=== PATIENT | female | born 1995 | race African-American/Black ===

== ENCOUNTER 2021-06-02 07:44 | Inpatient (IN) | payer OTHER ==
[~2021-06-02] VITALS: Ht 160 cm; Wt 52.6 kg
[2021-06-02] MEDS ORDERED: RHO(D) IMMUNE GLOBULIN 300 MCG/SYR IM SCH (08:15)
[2021-06-02] MEDS ORDERED: IBUPROFEN 400MG TABLET PO PRN (08:30)
[2021-06-02] MEDS ORDERED: RHO(D) IMMUNE GLOBULIN 300 MCG/SYR IM PRN (08:30)
[2021-06-02] MEDS ORDERED: LANOLIN OINT 7GM TUBE TOP PRN (08:30)
[2021-06-02] MEDS ORDERED: METHYLERGONOVINE MALEATE 0.2 MG/ML IM PRN (08:30)
[2021-06-02] MEDS ORDERED: IBUPROFEN 800MG TABLET PO PRN (08:30)
[2021-06-02 09:30] VITALS: BP 132/73
[2021-06-02 10:16] LABS: CLARITY URINE TURBID (CLEAR); COLOR URINE RED (YELLOW); KETONES URINE NEGATIVE (NEGATIVE); LEUKOCYTE ESTERASE URINE 2+ (NEGATIVE); NITRITE URINE POSITIVE (NEGATIVE); OCCULT BLOOD URINE 3+ (NEGATIVE); PH URINE >=9.0 (4.5-8.0); PROTEIN URINE 2+ (NEGATIVE); SPECIFIC GRAVITY URINE 1.017 (1.005-1.030); UROBILINOGEN URINE 0.2 E.U./dL (0.2-1.0)
[2021-06-02 10:52] LABS: HEMOGLOBIN. 11.5 g/dL (12.0-16.0); MEAN CORPUSCULAR HEMOGLOBIN 23.2 pg (28.0-32.0); MEAN CORPUSCULAR VOLUME 76.5 fL (81.0-99.0); MEAN PLATELET VOLUME 7.3 fl (7.4-10.4); PLATELET 453 x1000/uL (130-400); RED BLOOD CELL COUNT 4.97 mill/uL (4.2-5.4); RED CELL DISTRIBUTION WIDTH 33.5 % (11.6-14.6)
[2021-06-02 10:55] LABS: *AMPHETAMINES SCREEN URINE NEGATIVE (NEGATIVE); *BARBITURATES SCREEN URINE NEGATIVE (NEGATIVE); *BENZODIAZEPINES SCREEN URINE NEGATIVE (NEGATIVE); *COCAINE SCREEN URINE NEGATIVE (NEGATIVE); METHADONE URINE SCREEN NEGATIVE (NEGATIVE); OPIATES URINE SCREEN NEGATIVE (NEGATIVE); PHENCYCLIDINE URINE SCREEN NEGATIVE (NEGATIVE)
[2021-06-02 10:58] LABS: CANNABINOID URINE SCREEN PRESUMTIVE POSITIVE (NEGATIVE)
[2021-06-02 10:59] LABS: INR 0.9; PARTIAL THROMBOPLASTIN TIME 27.3 sec (23.4-31.0)
[2021-06-02 14:03] LABS: PLATELET ESTIMATE INCREASED
[2021-06-02] MEDS ORDERED: ONDANSETRON 4MG ODT PO PRN (14:45)
[2021-06-02 16:00] VITALS: BP 112/57
[2021-06-02 17:02] LABS: HEPATITIS B SURFACE ANTIGEN NEGATIVE
[2021-06-02 19:30] VITALS: BP 116/60
[2021-06-03 04:00] VITALS: BP 122/76
[2021-06-03] MEDS ORDERED: IBUP-2030 PO (04:15)
[2021-06-03 07:18] LABS: BASOPHILS % 0.4 % (0.0-2.0); HEMOGLOBIN. 11.5 g/dL (12.0-16.0); LYMPHOCYTES % 9.1 % (20.0-50.0); MEAN CORPUSCULAR HEMOGLOBIN 24.3 pg (28.0-32.0); MEAN CORPUSCULAR VOLUME 76.2 fL (81.0-99.0); MEAN PLATELET VOLUME 7.4 fl (7.4-10.4); MONOCYTES % 8.5 % (2.0-8.0); PLATELET 513 x1000/uL (130-400); RED BLOOD CELL COUNT 4.73 mill/uL (4.2-5.4); RED CELL DISTRIBUTION WIDTH 33.7 % (11.6-14.6)
[2021-06-03 07:35] VITALS: BP 94/55
[2021-06-03] MEDS: PRENATAL VIT/FE FUMARATE/FA TABLET PO SCH (08:28)
[2021-06-03 16:00] VITALS: BP 122/69
[2021-06-03 16:19] LABS: BASOPHILS % 0.4 % (0.0-2.0); EOSINOPHILS % 0.1 % (0.0-5.0); HEMATOCRIT. 38.7 % (36.0-48.0); HEMOGLOBIN. 12.2 g/dL (12.0-16.0); MEAN CORPUSCULAR HEMOGLOBIN 24.2 pg (28.0-32.0); MEAN CORPUSCULAR VOLUME 76.7 fL (81.0-99.0); MEAN PLATELET VOLUME 7.3 fl (7.4-10.4); MONOCYTES % 9.9 % (2.0-8.0); NEUTROPHILS % 75.6 % (40.0-76.0); PLATELET 574 x1000/uL (130-400); RED BLOOD CELL COUNT 5.04 mill/uL (4.2-5.4)
[2021-06-03 20:00] VITALS: BP 108/67
[2021-06-04 05:30] VITALS: BP 100/66
[2021-06-04 06:28] LABS: BASOPHILS % 0.3 % (0.0-2.0); EOSINOPHILS % 0.2 % (0.0-5.0); HEMATOCRIT. 38.1 % (36.0-48.0); HEMOGLOBIN. 12.3 g/dL (12.0-16.0); LYMPHOCYTES % 15.1 % (20.0-50.0); MEAN CORPUSCULAR HEMOGLOBIN 24.5 pg (28.0-32.0); MEAN CORPUSCULAR VOLUME 76.1 fL (81.0-99.0); MEAN PLATELET VOLUME 7.2 fl (7.4-10.4); MONOCYTES % 10.9 % (2.0-8.0); NEUTROPHILS % 73.5 % (40.0-76.0); PLATELET 526 x1000/uL (130-400); RED CELL DISTRIBUTION WIDTH 34.1 % (11.6-14.6)
[2021-06-04 07:52] VITALS: BP 95/50
[2021-06-04] MEDS: PRENATAL VIT/FE FUMARATE/FA TABLET PO SCH (08:53)
== END 2021-06-04 10:40 | disposition home or self-care (01) | DRG 769 ==
LOC: OBSVTOIN 07:44 → 8 EST LDRP 07:44 → 8EST 10:03
PROVIDERS: ADMIT Obstetrics & Gynecology; ATTEND Obstetrics & Gynecology
PROC: 10D17ZZ Extraction of Products of Conception, Retained, Via Natural or Artificial Opening (ICD-10-PCS; principal; 2021-06-02)
DX: O72.0 Third-stage hemorrhage (principal); O99.825 Streptococcus B carrier state complicating the puerperium
CPT/HCPCS: 36415; 80305; 80349; 81003; 85025; 86592; 86703; 86762; 86850; 86900; 87340; 87426; 99281; Q0162